=== PATIENT | male | born 1960 | race Caucasian/White ===

== ENCOUNTER 2020-01-05 20:26 | Inpatient (IN) ==
[2020-01-05] MEDS ORDERED: 0.9 % Sodium Chloride 500 ML IVC ONE (20:41)
[2020-01-05] MEDS ORDERED: Ipratropium/Albuterol Neb 3 ML IH ONE (20:42)
[2020-01-05 20:53] LABS: Basophils # 0.1 K/mcL (0.0-0.2); Basophils % 0.8 %; Eosinophils # 1.2 K/mcL (0.0-0.6); Eosinophils % 9.4 %; Hematocrit 49.8 % (37.5-50.1); Hemoglobin 16.3 g/dL (12.9-16.9); Immature Granulocytes % 0.5 % (0-4); Lymphocytes # 2.4 K/mcL (0.6-4.6); Mean Corpuscular HGB Conc 32.7 g/dL (31.6-35.5); Mean Corpuscular Hemoglobin 29.1 pg (28.0-33.3); Mean Corpuscular Volume 88.9 fL (83.0-100.0); Mean Platelet Volume 11.6 fL (9.4-12.4); Monocytes # 0.6 K/mcL (0.0-1.3); Monocytes % 4.9 %; Neutrophils # 8.6 K/mcL (1.6-8.9); Platelet Count 234 K/mcL (140-400); Red Cell Distribution Width 13.9 % (11.5-14.5); Segmented Neutrophils % 66.4 %
[2020-01-05 21:00] LABS: Prothrombin Time 11.3 Seconds (9.4-12.1)
[2020-01-05 21:01] LABS: ABG Base Excess -2 mEq/L (-2 to 3); ABG HCO3 25 mEq/L (21-27); ABG Oxygen Saturation 100 % (95-98); ABG PCO2 49 mmHg (35-45); ABG PH 7.32 pH Units (7.32-7.45); ABG PO2 219 mmHg (85-104); ABG TCO2 27 mEq/L (20-26)
[2020-01-05 21:02] LABS: Activated Partial Thrombo Time 31.8 Seconds (26.0-36.0)
[2020-01-05 21:20] LABS: Alanine Aminotransferase 26 Units/L (7-52); Albumin 3.9 g/dL (3.5-5.7); Albumin/Globulin Ratio 1.6 (1.1-2.2); Alkaline Phosphatase 68 Units/L (34-104); Aspartate Amino Transferase 14 Units/L (13-39); BUN/Creatinine Ratio 15 (6-26); Bilirubin,Indirect 0.3 mg/dL (0.0-1.0); Bilirubin,Total 0.3 mg/dL (0.3-1.0); Blood Urea Nitrogen 14 mg/dL (6-20); Calcium 8.5 mg/dL (8.6-10.3); Carbon Dioxide 24 mEq/L (23-29); Chloride 107 mEq/L (98-107); Globulin 2.4 g/dL (2.4-3.5); Glucose 111 mg/dL (70-105); Lipase 32 Units/L (11-82); Osmolality,Calculated 287 (280-300); Sodium 138 mEq/L (136-145); Total Protein 6.3 g/dL (6.4-8.9); Troponin I 0.08 ng/mL (< 0.04); eGFR For African Americans > 60 (> 60); eGFR For Non-African Americans > 60 (> 60)
[2020-01-05 22:24] LABS: Adenovirus Not Detected (Not Detect); Coronavirus 229E Not Detected (Not Detect); Coronavirus HKU1 Not Detected (Not Detect); Coronavirus NL63 Not Detected (Not Detect); Coronavirus OC43 Not Detected (Not Detect)
[2020-01-05 22:27] LABS: Bordetella Pertussis Not Detected (Not Detect); Chlamydophila pneumoniae Not Detected (Not Detect); Human Metapneumovirus Not Detected (Not Detect); Human Rhinovirus/Enterovirus Not Detected (Not Detect); Influenza A Subtype 2009 H1 Not Detected (Not Detect); Influenza B Not Detected (Not Detect); Mycoplasma pneumoniae Not Detected (Not Detect); Parainfluenza Virus 1 Not Detected (Not Detect); Parainfluenza Virus 2 Not Detected (Not Detect); Parainfluenza Virus 3 Not Detected (Not Detect); Parainfluenza Virus 4 Not Detected (Not Detect); Respiratory Syncytial Virus Not Detected (Not Detect); SARS-CoV-2 Not Detected (Not Detect)
[2020-01-05] MEDS ORDERED: methylPREDNISolone 125 MG/2 ML VIAL IVP ONE (22:34)
[2020-01-05 23:27] LABS: Bilirubin,Urine Negative (Negative); Blood,Urine Negative (Negative); Clarity,Urine Clear (Clear); Color,Urine Colorless (Yellow); Glucose,Urine (UA) Normal (Normal); Ketones,Urine Negative (Negative); Leukocyte Esterase,Urine Negative (Negative); Nitrite,Urine Negative (Negative); PH,Urine 5.5 pH Units (5.0-8.0); Protein,Urine Negative (Neg-Trace); Specific Gravity,Urine 1.015 (1.010-1.025); Urobilinogen,Urine Normal (Normal)
[2020-01-06] LABS: Amphetamine Screen,Urine Negative ng/mL (Cutoff=1000); Barbiturate Screen,Urine Negative ng/mL (Cutoff=200); Benzodiazepines Screen,Urine Negative ng/mL (Cutoff=200); Cannabinoid Screen,Urine Positive ng/mL (Cutoff = 50); Cocaine Screen,Urine Negative ng/mL (Cutoff= 300); Opiate Screen,Urine Negative ng/mL (Cutoff=300); Phencyclidine Screen,Urine Negative ng/mL (Cutoff=25)
[2020-01-06] MEDS ORDERED: Naloxone 0.4 MG/ML INJ IVP PRN (01:01)
[2020-01-06] MEDS ORDERED: Albuterol 2.5 MG/3 ML NEBULIZER IH PRN (03:55)
[2020-01-06] MEDS ORDERED: *HR* Heparin 5,000 UNIT/ML VIAL IVP PRN ×2 (04:19)
[2020-01-06] MEDS ORDERED: *HR* Heparin 5,000 UNIT/ML VIAL IVP ONE (04:19)
[2020-01-06] MEDS: Ipratropium/Albuterol Neb 3 ML IH SCH ×4 (04:29→21:57)
[2020-01-06] MEDS: Heparin 25,000 UNIT/250 ML D5W 25,000 UNIT/250 ML IV.SOLN IVC SCH (04:49)
[2020-01-06] MEDS: Azithromycin 500 MG in 0.9 % Sodium Chloride 250 ML IVPB SCH (04:49)
[2020-01-06] MEDS ORDERED: *HR* Heparin 5,000 UNIT/ML VIAL SQ SCH (06:00)
[2020-01-06 07:48] LABS: Hemoglobin 15.7 g/dL (12.9-16.9); Mean Corpuscular HGB Conc 32.7 g/dL (31.6-35.5); Mean Corpuscular Hemoglobin 28.9 pg (28.0-33.3); Mean Corpuscular Volume 88.2 fL (83.0-100.0); Mean Platelet Volume 11.3 fL (9.4-12.4); Platelet Count 224 K/mcL (140-400); Red Blood Count 5.44 M/mcL (4.19-5.50); White Blood Count 8.5 K/mcL (4.3-11.1)
[2020-01-06 07:51] LABS: Heparin anti-factor XA UFH 0.71 IU/mL (0.30-0.70); Prothrombin Time 11.3 Seconds (9.4-12.1)
[2020-01-06] MEDS: predniSONE 20 MG TABLET PO SCH (09:18)
[2020-01-06] MEDS ORDERED: Perflutren Lipid Microsphere 1.3 ML in 0.9 % Sodium Chloride 8.7 ML IVP PRN (11:04)
[2020-01-06] MEDS ORDERED: Aspirin 81 MG TAB.CHEW PO ONE (11:09)
[2020-01-06 12:05] LABS: Hematocrit 50.8 % (37.5-50.1); Hemoglobin 16.9 g/dL (12.9-16.9); Mean Corpuscular HGB Conc 33.3 g/dL (31.6-35.5); Mean Corpuscular Hemoglobin 30.1 pg (28.0-33.3); Mean Corpuscular Volume 90.4 fL (83.0-100.0); Mean Platelet Volume 11.5 fL (9.4-12.4); Platelet Count 256 K/mcL (140-400); Red Blood Count 5.62 M/mcL (4.19-5.50); Red Cell Distribution Width 13.9 % (11.5-14.5); White Blood Count 11.3 K/mcL (4.3-11.1)
[2020-01-06 12:29] LABS: BUN/Creatinine Ratio 16 (6-26); Blood Urea Nitrogen 15 mg/dL (6-20); Calcium 9.1 mg/dL (8.6-10.3); Carbon Dioxide 21 mEq/L (23-29); Chloride 103 mEq/L (98-107); Glucose 209 mg/dL (70-105); Osmolality,Calculated 287 (280-300); Potassium 4.2 mEq/L (3.5-5.1); Sodium 135 mEq/L (136-145); eGFR For African Americans > 60 (> 60); eGFR For Non-African Americans > 60 (> 60)
[2020-01-07] MEDS: Azithromycin 500 MG in 0.9 % Sodium Chloride 250 ML IVPB SCH (04:05)
[2020-01-07] MEDS: Ipratropium/Albuterol Neb 3 ML IH SCH ×4 (04:12→22:22)
[2020-01-07] MEDS: Heparin 25,000 UNIT/250 ML D5W 25,000 UNIT/250 ML IV.SOLN IVC SCH (09:08)
[2020-01-07] MEDS: Aspirin 81 MG TAB.CHEW PO SCH (09:08)
[2020-01-07] MEDS: predniSONE 20 MG TABLET PO SCH (09:08)
[2020-01-08] MEDS: Azithromycin 500 MG in 0.9 % Sodium Chloride 250 ML IVPB SCH (03:37)
[2020-01-08] MEDS: Ipratropium/Albuterol Neb 3 ML IH SCH ×2 (04:11→11:16)
[2020-01-08] MEDS ORDERED: 0.9 % Sodium Chloride 1,000 ML ONE ×2 (07:45→08:53)
[2020-01-08] MEDS: Aspirin 81 MG TAB.CHEW PO SCH (07:59)
[2020-01-08] MEDS: predniSONE 20 MG TABLET PO SCH (07:59)
[2020-01-08] MEDS ORDERED: *HR* Midazolam HCl 2 MG/2 ML VIAL ONE (08:18)
[2020-01-08] MEDS ORDERED: Nitroglycerin 1,000 MCG/10 ML VIAL IV ONE (08:53)
[2020-01-08] MEDS ORDERED: ISOVUE-370 200 ML INFUS..BTL ONE (08:53)
[2020-01-08] MEDS ORDERED: Heparin 1,000 UNITS/500 mL 500 ML ONE (08:53)
[2020-01-08] MEDS ORDERED: *HR* Heparin 10,000 UNIT/10 ML VIAL ONE (08:53)
[2020-01-08] MEDS: Heparin 25,000 UNIT/250 ML D5W 25,000 UNIT/250 ML IV.SOLN IVC SCH (09:46)
[2020-01-08 12:55] VITALS: BP 133/78
== END 2020-01-08 14:17 | disposition home or self-care (01) | DRG 190 ==
LOC: 3BNU 20:26 → EMEROOARM 20:26 → 3BNU 23:13 → SUATTDRO 01-06 15:19
PROVIDERS: ADMIT Internal Medicine; ATTEND Internal Medicine